=== PATIENT | male | born 1995 | race Caucasian/White ===

== ENCOUNTER 2017-08-24 10:53 | Emergency (ER) | payer BC ==
[2017-08-24 11:12] VITALS: BP 125/74
--- NOTE | 2017-08-24 11:32 | UC ---
Upper Extremity HPI - HPI Summary HPI Summary: he tripped and fell landing on his right shoulder. he had sudden pain. he has no neck pain or numbness. he believe he may have dislocated and then reduced the shoulder immediately. - History of Current Complaint Chief Complaint: UCUpperExtremity Stated Complaint: RIGHT SHOULDER PAIN Time Seen by Provider: 08/24/17 10:56 Hx Obtained From: Patient Onset/Duration: Sudden Onset, Lasting Hours Severity Initially: Severe Severity Currently: Moderate Location Of Pain: Is Discrete @ - posterior right shoulder. Character: Aching Aggravating Factor(s): Movement, Flexion, Extension, Internal/External Rotation Alleviating Factor(s): Rest Associated Signs And Symptoms: Positive: Negative - Allergies/Home Medications Allergies/Adverse Reactions: Allergies Allergy/AdvReac Type Severity Reaction Status Date / Time seasonal Allergy Congestion Uncoded 08/24/17 11:12 Home Medications: Home Medications NK [No Home Medications Reported] 08/24/17 [History Confirmed 08/24/17] PMH/Surg Hx/FS Hx/Imm Hx Previously Healthy: Yes - Surgical History Surgical History: Yes Surgery Procedure, Year, and Place: tonsils - Family History Known Family History: Positive: Other - no related right shoulder family history. - Social History Occupation: Student Alcohol Use: Weekly Alcohol Amount: 6-8 Substance Use Type: None Smoking Status (MU): Never Smoked Tobacco Review of Systems Musculoskeletal: Arthralgia All Other Systems Reviewed And Are Negative: Yes Physical Exam Triage Information Reviewed: Yes Appearance: Well-Appearing, No Pain Distress, Well-Nourished Vital Signs: Initial Vital Signs Temp 98.6 F 08/24/17 11:03 Pulse 66 08/24/17 11:03 Resp 20 08/24/17 11:03 BP 125/74 08/24/17 11:03 Vital Signs Reviewed: Yes Eyes: Positive: Conjunctiva Clear ENT: Positive: Pharynx normal Neck: Negative: Nuchal Rigidity Respiratory: Positive: No respiratory distress Cardiovascular: Positive: Pulses Normal, Brisk Capillary Refill. Negative: Tachycardia, Delayed Capillary Refill Abdomen Description: Negative: Distended Musculoskeletal Exam: Other - right shoulder some pain with ROM testing such as external rotation. There is no ac joint tenderness and apley crossover neg. there is positive apprehension test. Strenght intact with empty can, wrist suppination/pronation, and shoulder abduction. Neurological Exam: Normal Psychological Exam: Normal Skin Exam: Normal Upper Extremity Course/Dx - Course Course Of Treatment: possible dislocation and reduction before arrival. No signs of rotator cuff rupture. he will f/u prn and try nsaids, ice and rest for 1-2 weeks. - Differential Dx/Diagnosis Provider Diagnoses: shoulder sprain. Discharge - Discharge Plan Condition: Good Disposition: HOME Patient Education Materials: Shoulder Sprain (ED) Referrals: Joe Jacques MD [Medical Doctor] - If Needed Additional Instructions: Advil 200mg tabs over the counter. take 3 tabs three times a day as needed and ice.
== END 2017-08-24 11:27 | disposition home or self-care (01) ==
LOC: UCCORT 10:53
DX: S43.401A Unspecified sprain of right shoulder joint, initial encounter (principal); W01.10XA Fall on same level from slipping, tripping and stumbling with subsequent striking against unspecified object, initial encounter
CPT/HCPCS: 99201; G0463